=== PATIENT | male | born 1985 | race Hispanic/Latino ===

== ENCOUNTER 2019-02-24 14:23 | Emergency (ER) | payer OTHER ==
--- NOTE | 2019-02-24 15:33 | ED PDOC ---
HPI: Head Injury Time Seen by Provider: 02/24/19 14:52 Chief Complaint (Nursing): Headache Chief Complaint (Provider): Headache History Per: Patient Onset/Duration Of Symptoms: Days (x2 weeks ) Additional Complaint(s): Patient is a 33 year old male, who presents to the emergency department for evaluation after sustaining a head injury 2 weeks ago. 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 Since the head injury, patient has had intermittent dizziness, photosensitivity, phonophobia, global headache, and nausea. He reports that he has been unable to concentrate at work. Patient states he went to an urgent care and had no imaging done and was given Reglan with a temporary improvement in symptoms. He states he also went to an ENT doctor to make sure everything was normal and they said his exam was normal. Patient was sent home today from work because he was not feeling well, prompting evaluation today. 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 Denies visual changes, fever, neck pain/stiffness, numbness/weakness, syncope, SOB, chest pain, N/V/D, abdominal pain. PMD: Yaw Avendaño Past Medical History Reviewed: Historical Data, Nursing Documentation, Vital Signs Vital Signs: Last Vital Signs Temp 98.5 F 02/24/19 14:41 Pulse 101 H 02/24/19 14:41 Resp 16 02/24/19 14:41 BP 126/82 02/24/19 14:41 Pulse Ox 100 02/24/19 14:41 - Medical History PMH: No Chronic Diseases - Surgical History Surgical History: No Surg Hx - Family History Family History: States: Unknown Family Hx - Home Medications Home Medications: Ambulatory Orders Medication Instructions Recorded Acetaminophen [Acetaminophen 8 650 mg PO Q8 PRN #21 tablet.er 02/24/19 Hour] - Allergies Allergies/Adverse Reactions: Allergies Allergy/AdvReac Type Severity Reaction Status Date / Time No Known Allergies Allergy Verified 02/24/19 14:41 Review of Systems ROS Statement: Except As Marked, All Systems Reviewed And Found Negative Constitutional: Negative for: Fever Eyes: Negative for: Vision Change Gastrointestinal: Positive for: Nausea Musculoskeletal: Negative for: Neck Pain Neurological: Positive for: Headache, Dizziness, Other (photophobia, phonophobia ) Physical Exam - Reviewed Nursing Documentation Reviewed: Yes Vital Signs Reviewed: Yes - Physical Exam Comments: GENERAL APPEARANCE: Patient is awake, alert, oriented x 3, in no acute distress. Anxious appearing. SKIN: Warm, dry; (-) cyanosis; (-) rash. HEAD: (-) scalp swelling or tenderness, (-) hematoma EYES: (-) conjunctival injection (+) photophobia ENMT: (-) sinus or facial bone tenderness; mucous membranes are moist. Airway patent, (-) stridor. NECK: Supple, FROM (-) tenderness, (-) stiffness, (-) meningismus, (-) lymphaden opathy. CHEST AND RESPIRATORY: (-) rales, (-) rhonchi, (-) wheezes; breath sounds equal bilaterally. Respirations even and nonlabored. HEART AND CARDIOVASCULAR: (-) irregularity ABDOMEN AND GI: Soft; (-) tenderness (-) distention. EXTREMITIES: (-) deformity. NEURO AND PSYCH: Mental status as above. 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 Strength symmetric. Gait: steady. Speech: clear. Cerebellar tests intact. - ECG O2 Sat by Pulse Oximetry: 100 (RA) Pulse Ox Interpretation: Normal Medical Decision Making Medical Decision Making: Time: 1515 Impression: closed head injury, probable concussion Plan: --CT head without contrast --Tylenol 640 mg PO --Reglan 10 mg PO --Re-evaluation Time: [address] finding: Date of service: 02/24/2019 PROCEDURE: CT HEAD WITHOUT CONTRAST. HISTORY: head injury COMPARISON: None available. TECHNIQUE: Axial computed tomography images were obtained through the head/brain without intravenous contrast. Supplemental Coronal and Sagittal projections created and reviewed. Radiation dose: Total exam DLP = 812.29 mGy-cm. This CT exam was performed using one or more of the following dose reduction techniques: Automated exposure control, adjustment of the mA and/or kV according to patient size, and/or use of iterative reconstruction technique. FINDINGS: HEMORRHAGE: No intracranial hemorrhage. BRAIN: No mass effect or edema. No atrophy or chronic microvascular ischemic changes. VENTRICLES: Unremarkable. No hydrocephalus. CALVARIUM: Unremarkable. PARANASAL SINUSES: Unremarkable as visualized. No significant inflammatory changes. MASTOID AIR CELLS: Unremarkable as visualized. No inflammatory changes. OTHER FINDINGS: None. IMPRESSION: No acute intracranial abnormalities. No significant findings to account for the clinical presentation. On re-evaluation, patient reports improvement of symptoms. On exam, patient remains AAOx3, in no acute distress. Lungs clear to auscultation, cardiac RRR, repeat neuro exam shows no focal findings. Repeat HR: 82. Vitals stable. Lab/Diagnostic results d/w the patient in great detail. Diagnosis of closed head injury, concussion d/w the patient. Based on history, exam and diagnostic results, plan will be for outpatient follow up with neuro. Patient instructed to follow-up with pmd / referral provided / the clinic in 1- 2 days without fail. Advised to take medication as prescribed. Return to the emergency room at any time for any new or worsening symptoms. Patient states he fully agrees with and understands discharge instructions. States that he agrees with the plan and disposition. Verbalized and repeated discharge instructions and plan. I have given the patient opportunity to ask any additional questions. Scribe Attestation: Documented by Jose Alejandro Christy acting as a scribe for Светлана Smallwood Provider Scribe Attestation: All medical record entries made by the Scribe were at my direction and perso korin dictated by me. I have reviewed the chart and agree that the record accurately reflects my personal performance of the history, physical exam, medical decision making, and the department course for this patient. I have also personally directed, reviewed, and agree with the discharge instructions and disposition. Disposition - Clinical Impression Clinical Impression: Headache, Postconcussion syndrome, Closed head injury - Patient ED Disposition Is Patient to be Admitted: No Counseled Patient/Family Regarding: Studies Performed, Diagnosis, Need For Followup, Rx Given - Disposition Referrals: Priti Cheng MD [Medical Doctor] - Disposition: Routine/Home Disposition Time: 16:00 Condition: STABLE Additional Instructions: The emergency medical care you received today was directed at your acute symptoms. If you were prescribed any medication, please fill it and take as directed. It may take several days for your symptoms to resolve. Return to the Emergency Department if your symptoms worsen, do not improve, or if you have any other problems. Please contact your doctor in 2 days for re-evaluation and follow up / or call one of the physicians/clinics you have been referred to that are listed on the Patient Visit Information form that is included in your discharge packet. Bring any paperwork you were given at discharge with you along with any medications you are taking to your follow up visit. Our treatment cannot replace ongoing medical care by a primary care provider (PCP) outside of the emergency [facility] Prescriptions: Acetaminophen [Acetaminophen 8 Hour] 650 mg PO Q8 PRN #21 tablet.er PRN Reason: Pain, Moderate (4-7) Instructions: Concussion in Adults, Headache, Adult, Closed Head Injury (DC), Postconcussion Syndrome (DC) Forms: [employer] (Niuean), [facility] ED School/Work Excuse Print Language: WELSH - POA Present On Arrival: None
--- NOTE | 2019-02-24 16:11 | CT ---
Date of service: 02/24/2019 PROCEDURE: CT HEAD WITHOUT CONTRAST. HISTORY: head injury COMPARISON: None available. TECHNIQUE: Axial computed tomography images were obtained through the head/brain without intravenous contrast. Supplemental Coronal and Sagittal projections created and reviewed. Radiation dose: Total exam DLP = 812.29 mGy-cm. This CT exam was performed using one or more of the following dose reduction techniques: Automated exposure control, adjustment of the mA and/or kV according to patient size, and/or use of iterative reconstruction technique. FINDINGS: HEMORRHAGE: No intracranial hemorrhage. BRAIN: No mass effect or edema. No atrophy or chronic microvascular ischemic changes. VENTRICLES: Unremarkable. No hydrocephalus. CALVARIUM: Unremarkable. PARANASAL SINUSES: Unremarkable as visualized. No significant inflammatory changes. MASTOID AIR CELLS: Unremarkable as visualized. No inflammatory changes. OTHER FINDINGS: None. IMPRESSION: No acute intracranial abnormalities. No significant findings to account for the clinical presentation.
[2019-02-24 16:51] VITALS: BP 124/78; PULSE 82; RESP 18; TEMP 98.2
[2019-02-24 20:10] VITALS: O2SAT 100
== END 2019-02-24 16:51 | disposition home or self-care (01) ==
LOC: H.ER 14:23
DX: F07.81 Postconcussional syndrome (principal)

== ENCOUNTER 2019-03-25 22:42 | Emergency (ER) | payer OTHER ==
--- NOTE | 2019-03-25 23:54 | ED PDOC ---
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 Patient reports it was his first call after recovering from his head injury and concussion. While responding to a burnt AC the patient began feeling pressure across his chest and having anxiety, thus, prompting an ED visit. Patient denies shortness of breath, loss of consciousness, and headache. PCP: None Past Medical History Reviewed: Historical Data, Nursing Documentation, Vital Signs Vital Signs: Last Vital Signs Temp 98.3 F 03/25/19 22:43 Pulse 96 H 03/25/19 22:43 Resp 18 03/25/19 22:43 BP 123/80 03/25/19 22:43 Pulse Ox 98 03/25/19 22:43 Primary Care Provider: FAMILY PROVIDER,NO - Medical History Other PMH: concussion - Surgical History Surgical History: No Surg Hx - Family History Family History: States: Unknown Family Hx - Home Medications Home Medications: Ambulatory Orders Medication Instructions Recorded Acetaminophen [Acetaminophen 8 650 mg PO Q8 PRN #21 tablet.er 02/24/19 Hour] - Allergies Allergies/Adverse Reactions: Allergies Allergy/AdvReac Type Severity Reaction Status Date / Time No Known Allergies Allergy Verified 02/24/19 14:41 Review of Systems ROS Statement: Except As Marked, All Systems Reviewed And Found Negative Cardiovascular: Positive for: Chest Pain, Palpitations Respiratory: Negative for: Shortness of Breath Neurological: Negative for: Headache, Other (loss of consciousness) Psych: Positive for: Anxiety Physical Exam - Reviewed Nursing Documentation Reviewed: Yes Vital Signs Reviewed: Yes - Physical Exam Appears: Positive for: No Acute Distress Head Exam: Positive for: ATRAUMATIC, NORMAL INSPECTION, NORMOCEPHALIC Skin: Positive for: Normal Color, Warm, DRY Eye Exam: Positive for: EOMI, Normal appearance, PERRL Neck: Positive for: Normal, Painless ROM, Supple Cardiovascular/Chest: Positive for: Regular Rate, Rhythm. Negative for: Murmur Respiratory: Positive for: Normal Breath Sounds. Negative for: Respiratory Distress Gastrointestinal/Abdominal: Positive for: Normal Exam, Soft. Negative for: Tenderness Back: Positive for: Normal Inspection. Negative for: L CVA Tenderness, R CVA Tenderness Extremity: Positive for: Normal ROM. Negative for: Pedal Edema, Deformity Neurological/Psych: Positive for: Alert, Oriented (x3), Mood/Affect (calm) - Laboratory Results Result Diagrams: 03/25/19 23:50 03/25/19 23:50 - ECG O2 Sat by Pulse Oximetry: 98 (RA) Pulse Ox Interpretation: Normal - Progress Re-evaluation Time: :02 Condition: Re-examined, Improved Medical Decision Making Medical Decision Making: Time: 2329 Impression: Chest Pain DDx includes but not limited to acute coronary syndrome, pulmonary embolism, anxiety, and panic attack. 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 Will admi nister Ativan 1 mg IV. Time: 101 CXR is negative. Patient is feeling better. Symptoms have significantly improved. Patient is stable for discharge. Scribe Attestation: Documented by Nestor Weeks, acting as a scribe Regi Muñoz MD. Provider Scribe Attestation: All medical record entries made by the Scribe were at my direction and personally dictated by me. I have reviewed the chart and agree that the record accurately reflects my personal performance of the history, physical exam, medical decision making, and the department course for this patient. I have also personally directed, reviewed, and agree with the discharge instructions and disposition. Disposition - Clinical Impression Clinical Impression: Chest pain, Panic attack - Patient ED Disposition Is Patient to be Admitted: No Doctor Will See Patient In The: Office Counseled Patient/Family Regarding: Studies Performed, Diagnosis, Need For Followup - Disposition Referrals: [facility] [Outside] Disposition: Routine/Home Disposition Time: :02 Condition: GOOD Additional Instructions: LITTLE TURNER, thank you for letting us take care of you today. Your provider was Israel Muñoz MD and you were treated for CHEST PRESSURE. The emergency medical care you received today was directed at your acute symptoms. If you were prescribed any medication, please fill it and take as directed. It may take several days for your symptoms to resolve. Return to the Emergency Department if your symptoms worsen, do not improve, or if you have any other problems. Please contact your doctor or call one of the physicians/clinics you have been referred to that are listed on the Patient Visit Information form that is included in your discharge packet. Bring any paperwork you were given at discharge with you along with any medications you are taking to your follow up visit. Our treatment cannot replace ongoing medical care by a primary care provider outside of the emergency department. [facility]. If you had an X-Ray or CT scan: A Radiologist will review the ED reading if any change in treatment is needed we will contact you. If you had a blood, urine, or wound culture: It will take several days for the results, if any change in treatment is needed we will contact you. Instructions: Chest Pain, Panic Disorder (DC)
[2019-03-26 00:10] LABS: BASO % 0.4 % (0.0-2.0); EOS # 0.1 K/uL (0.0-0.7); HEMOGLOBIN 14.4 g/dL (12.0-18.0); LYMPH # 1.7 K/uL (1.0-4.3); LYMPH % 26.3 % (20.0-40.0); MEAN CELL VOLUME 83.5 fl (80.0-94.0); MEAN CORPUSCULAR HEMOGLOBIN 28.4 pg (27.0-31.0); MEAN PLATELET VOLUME 7.9 fl (7.2-11.7); MONO # 0.6 K/uL (0.0-0.8); MONO % 8.8 % (0.0-10.0); NEUT # 4.1 K/uL (1.8-7.0); NEUT % 63.5 % (50.0-75.0); NRBC % 0.1 % (0.0-0.0); RBC 5.07 Mil/uL (4.40-5.90); RED CELL DISTRIBUTION WIDTH 12.9 % (11.5-14.5); WHITE BLOOD COUNT 6.4 K/uL (4.8-10.8)
[2019-03-26 00:15] LABS: BLOOD UREA NITROGEN 19 mg/dl (9-20); CALCIUM 8.9 mg/dL (8.4-10.2); GFR NON-AFRICAN AMERICAN > 60
[2019-03-26 02:09] VITALS: BP 120/67; PULSE 78; RESP 18; TEMP 98
--- NOTE | 2019-03-26 11:49 | CARD ---
APPROVED REPORT Date of service: 03/25/2019 EKG Measurement Heart [id number] <Conclusion> Normal sinus rhythm with sinus arrhythmia Normal ECG
[2019-03-28 14:52] VITALS: O2SAT 98
== END 2019-03-26 01:30 | disposition home or self-care (01) ==
LOC: H.ER 22:42
DX: R07.9 Chest pain, unspecified (principal); F41.0 Panic disorder [episodic paroxysmal anxiety]
CPT/HCPCS: 80048; 84484; 85025; 93005; 96374; 99283; J2060